=== PATIENT | male | born 1955 | race Caucasian/White ===

== ENCOUNTER → 2021-07-08 | Outpatient (CLI) | payer BC ==
[~2021-07-08] VITALS: Ht 182.9 cm; Wt 145.2 kg
[~2021-07-08] MED LIST: ARTHRITIS TYLENOL PO; CARVEDILOL12.5 MG PO; DULOXETINE HCL60 MG PO; EFFER-K 20 MEQ20 ME1 PO; FENOFIBRATE160 MG PO; GRALISE300 MG PO; MELATONIN10 M3 PO; METAMUCIL1 EAC1 PO; NORTRIPTYLINE H25 M3 PO; PROBIOTIC1 EAC7 PO; TORSEMIDE20 MG PO
[2021-07-08 14:48] VITALS: BP 151/81
--- NOTE | 2021-07-08 15:36 | NUR ---
Pain Clinic Assessment: 1. History of Osteoarthritis: ARTHRITIS History of Rheumatoid Arthritis: 2. Height: 6 ft. 0 in. 182.9 cm. Weight: 320.0 lb. oz. 145.152 kg. Patient's BMI: 43.4 3. Vital Signs: BP: 151/81 Pulse: 94 Resp: 20 Temp: 02 Sat: 95 ECG Mon: 4. Pain Intensity: 8 5. Fall Risk: Dizziness: N Needs help standing or walking: Y Fallen in the last 3 months: N Fall risk comments: 6. Patient on Blood Thinner: None 7. History of Hypertension: Y 8. Opioid Therapy greater than 6 weeks: N Opiate Contract Signed: 9. Risk Assessment Tool Provided: 0-3 LOW RISK 10. Functional Assessment Tool: 65/70 11. Recreational Drug Use: Never Drug Type: Tobacco Use: Never Smoker Tobacco Type: Amount or Packs/day: How Many Years: Alcohol Use: No Frequency: Quant:
== END ==
LOC: PAIN 08:37
PROVIDERS: ATTEND Anesthesiology Pain Medicine
DX: M54.59 Other low back pain (principal); G62.89 Other specified polyneuropathies; M54.16 Radiculopathy, lumbar region; M17.0 Bilateral primary osteoarthritis of knee; I12.9 Hypertensive chronic kidney disease with stage 1 through stage 4 chronic kidney disease, or unspecified chronic kidney disease; N18.9 Chronic kidney disease, unspecified; Z96.651 Presence of right artificial knee joint; Z96.653 Presence of artificial knee joint, bilateral; Z88.8 Allergy status to other drugs, medicaments and biological substances; Z79.899 Other long term (current) drug therapy

== ENCOUNTER → 2021-09-12 | Outpatient (CLI) | payer BC ==
[~2021-09-12] VITALS: Ht 177.8 cm; Wt 150.1 kg
[~2021-09-12] MED LIST changes: +BRINTELLIX10 MG PO; +NORVASC 2.5 MG2.5 M1 PO; +XANAX2 MG PO
[2021-09-12 10:28] VITALS: BP 118/62
--- NOTE | 2021-09-12 10:37 | NUR ---
Pain Clinic Assessment: 1. History of Osteoarthritis: ARTHRITIS History of Rheumatoid Arthritis: 2. Height: 5 ft. 10 in. 177.8 cm. Weight: 331.0 lb. oz. 150.141 kg. Patient's BMI: 47.5 3. Vital Signs: BP: 118/62 Pulse: 77 Resp: 20 Temp: 02 Sat: 95 ECG Mon: 4. Pain Intensity: 8 5. Fall Risk: Dizziness: Y Needs help standing or walking: Y Fallen in the last 3 months: Y Fall risk comments: PT SLID OUT OF BED YESTERDAY BUT DIDN'T HIT THE FLOOR 6. Patient on Blood Thinner: None 7. History of Hypertension: Y 8. Opioid Therapy greater than 6 weeks: N Opiate Contract Signed: 9. Risk Assessment Tool Provided: 0-3 LOW RISK 10. Functional Assessment Tool: 65/70 11. Recreational Drug Use: Never Drug Type: Tobacco Use: Former Smoker Tobacco Type: Amount or Packs/day: How Many Years: Alcohol Use: No Frequency: Quant:
== END | disposition home or self-care (01) ==
LOC: PAIN 08:57
PROVIDERS: ATTEND Anesthesiology Pain Medicine
DX: M70.62 Trochanteric bursitis, left hip (principal); M70.61 Trochanteric bursitis, right hip; G89.29 Other chronic pain; I10 Essential (primary) hypertension; M19.90 Unspecified osteoarthritis, unspecified site; Z98.890 Other specified postprocedural states; Z79.899 Other long term (current) drug therapy; Z87.891 Personal history of nicotine dependence; Z88.8 Allergy status to other drugs, medicaments and biological substances; Z88.0 Allergy status to penicillin